=== PATIENT | male | born 1950 | race Caucasian/White ===

== ENCOUNTER → 2018-12-09 | Outpatient (CLI) | payer MEDICARE, OTHER ==
[~2018-12-09] MED LIST: ALBU90OI; FLUSAL2505; PROTONIX
== END | disposition home or self-care (01) ==
LOC: LAB SHORT 10:01 → PLD 10:01
DX: L57.0 Actinic keratosis (principal)
CPT/HCPCS: 88305

== ENCOUNTER → 2021-01-08 | Outpatient (CLI) | payer MEDICARE, OTHER | END | disposition home or self-care (01) | LOC: LAB SHORT 14:57 → LAB 14:57 | DX: L30.8 Other specified dermatitis (principal) | CPT/HCPCS: 88305; 88312 ==

== ENCOUNTER 2022-07-02 07:57 | Day surgery (SDC) | payer MEDICARE, OTHER ==
[~2022-07-02] VITALS: Ht 177.8 cm; Wt 86.0 kg
[~2022-07-02 07:57] MED LIST changes: +AMLO10 PO; +FLUT1DIS5 INH; +GABA300 PO; +MAGNESIUM GLU27.5 M1 PO; +METO25ER PO; +PRAV20 PO; +VITAMIN B COMP0.4 MG PO
--- NOTE | 2022-07-02 09:59 | NUR ---
PT RETURNED TO RECOVERY ROOM IN A RECLINER. RIGHT RADIAL TR BAND SITE SOFT NON-TENDER WITH NO HEMATOMA, NO PULSATILE BLEEDING AND WRIST BOARD IN PLACE. PT DENIES CHEST PAIN. CALL LIGHT IN REACH. PT DRINKING COFFEE. PT'S AND DAUGHTER IN ROOM.
--- NOTE | 2022-07-02 11:27 | NUR ---
9 CC OF AIR REMOVED OVER 7 MIN OUT OF NOW DEFLATED RIGHT TR BAND WITH NO HEMATOMA,NO PULSATILE BLEEDING. DISCHARGE INSTRUCTIONS REVIEWED AND ALL QUESTIONS ANSWERED. PT AMBULATED TO BR TO VOID.
--- NOTE | 2022-07-02 12:14 | NUR ---
NO CHANGES TO DEFLATED RIGHT TR BAND SITE.
--- NOTE | 2022-07-02 12:22 | NUR ---
DEFLATED TR BAND REMOVED AND POLYMEM PLACED OVER RIGHT RADIAL SITE WITH WRIST BOARD IN PLACE. RIGHT RADIAL SITE SOFT NON-TENDER WITH NO HEMATOMA, NO PULSATILE BLEEDING. 20 G IV DISCONTINUED FROM LEFT AC WITH INTACT CANNULA. PT WILL BE ESCORTED OUT VIA WHEELCHAIR ESCORT.
== END 2022-07-02 12:30 | disposition home or self-care (01) ==
LOC: MHTC 07:57
DX: I25.10 Atherosclerotic heart disease of native coronary artery without angina pectoris (principal); R93.89 Abnormal findings on diagnostic imaging of other specified body structures; I10 Essential (primary) hypertension; K21.9 Gastro-esophageal reflux disease without esophagitis; J44.9 Chronic obstructive pulmonary disease, unspecified; I49.1 Atrial premature depolarization; I49.3 Ventricular premature depolarization; I47.1 Supraventricular tachycardia; Z98.1 Arthrodesis status
CPT/HCPCS: 76937; 93454; 99152; 99153; A9270; C1769; C1887; C1894; J0153; J1644; J2250; J3010; J7030; J7050; Q9967

== ENCOUNTER 2022-09-24 07:51 | Day surgery (SDC) | payer MEDICARE, OTHER ==
[2022-09-24] MEDS ORDERED: 1/2 NS 250ml250 ML (08:04)
[2022-09-24] MEDS ORDERED: LANS30EC (08:04)
[2022-09-24] MEDS ORDERED: ALBU90OI (08:05)
[2022-09-24] MEDS ORDERED: ASPI81CH (08:06)
== END 2022-09-24 10:08 | disposition home or self-care (01) ==
DX: H25.12 Age-related nuclear cataract, left eye (principal); H52.202 Unspecified astigmatism, left eye; H21.81 Floppy iris syndrome; I10 Essential (primary) hypertension; G47.33 Obstructive sleep apnea (adult) (pediatric); J44.9 Chronic obstructive pulmonary disease, unspecified; Z87.891 Personal history of nicotine dependence; K21.9 Gastro-esophageal reflux disease without esophagitis; F43.10 Post-traumatic stress disorder, unspecified; Z79.899 Other long term (current) drug therapy; Z79.82 Long term (current) use of aspirin

== ENCOUNTER → 2023-05-29 | Outpatient (CLI) | payer MEDICARE, OTHER ==
[~2023-05-29] MED LIST changes: +1/2 NS 250ml250 ML; +ASPI81CH; +LANS30EC
== END | disposition home or self-care (01) ==
LOC: LAB SHORT 13:35 → PLD 13:35 → LAB 13:35
DX: L72.8 Other follicular cysts of the skin and subcutaneous tissue (principal)
CPT/HCPCS: 88304

== ENCOUNTER 2023-09-09 10:20 | Observation (INO) | payer MEDICARE, OTHER ==
[~2023-09-09] VITALS: Ht 177.8 cm; Wt 80.7 kg
[2023-09-09 11:27] LABS: BASOPHILS ABSOLUTE AUTO 0.04 K/mm3 (0.00-0.23); BASOPHILS PERCENT AUTO 1 % (0-2); EOSINOPHILS PERCENT AUTO 4 % (0-6); Hematocrit 50.4 % (37.0-53.0); Hemoglobin 17.8 g/dL (13.5-17.5); IMMATURE GRAN ABSOLUTE AUTO 0.01 K/mm3 (0.00-0.10); IMMATURE GRAN PERCENT AUTO 0 % (0-1); LYMPHOCYTES ABSOLUTE AUTO 1.58 K/mm3 (0.84-5.20); LYMPHOCYTES PERCENT AUTO 29 % (21-46); MONOCYTES ABSOLUTE AUTO 0.52 K/mm3 (0.16-1.47); MONOCYTES PERCENT AUTO 10 % (4-13); Mean Corpuscular HGB 33.2 pg (26.0-34.0); Mean Corpuscular HGB Conc 35.3 g/dL (31.5-36.5); Mean Corpuscular Volume 94 fL (80-100); Mean Platelet Volume 10.4 fL (9.1-12.4); NEUTROPHILS ABSOLUTE AUTO 3.05 K/mm3 (1.96-9.15); NEUTROPHILS PERCENT AUTO 57 % (41-73); Platelet Count 193 K/mm3 (150-400); RDW Coefficient Variation 12.1 % (11.7-14.2); Red Blood Cell Count 5.36 M/mm3 (4.30-5.90)
[2023-09-09 11:43] LABS: Albumin, Blood 4.4 g/dL (3.4-5.0); Bilirubin, Total 1.1 mg/dL (0.1-1.0); Bun/Creatinine Ratio 11.4 (12.0-20.0); Calcium, Blood 9.6 mg/dL (8.5-10.1); Creatinine, Blood 0.79 mg/dL (0.60-1.20); Globulin, Blood 4.3 g/dL (2.2-4.0); Potassium, Blood 5.3 mmol/L (3.5-5.5); Total Protein, Blood 8.7 g/dL (6.4-8.2)
[2023-09-09 17:19] VITALS: BP 151/76
--- NOTE | 2023-09-09 18:18 | NUR ---
ADMIT/SHIFT SUMMARY PT NEW ADMIT AT 1720, REPORT RECEIVED FROM SHWETA HILL. PT ORIENTED TO THE ROOM, ORDERED TELE BOX BUT STILL WAITING IT'S ARRIVAL. DAUGHTER AT THE BS AND SHE IS ALSO A NURSE AT THIS HOSPITAL. PT HAS NO COMPLAINTS AT THIS TIME, HE IS TO GO NPO AT MIDNIGHT TONIGHT. CALL LIGHT WITHIN REACH, BED IN THE LOWEST POSITION. WILL REPORT TO ONCOMING NURSE.
[2023-09-09 19:41] VITALS: BP 133/77
[2023-09-10 04:29] VITALS: BP 141/79
--- NOTE | 2023-09-10 05:31 | NUR ---
SHIFT SUMMARY PATIENT IS A&OX4. 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 DENIES PAIN. DENIES CHEST PAIN/PRESSURE. ON A CARDIAC DIET, NPO EXCEPT WATER AFTER MN FOR STRESS TEST TODAY. PATIENT AWAKE MUCH OF THE NIGHT. PT STATES HE DRINKS 3-4 WHISKEY/VALADEZ EVERY NIGHT. NO S/S OF WITHDRAW NOTED. UP AD [place] IN ROOM. VOIDING IN BR INDEPENDENTLY. BED IN LOWEST POSITION. CALL LIGHT WITHIN REACH. FIRE SAFETY CHECKS COMPLETED
[2023-09-10 06:09] LABS: Albumin, Blood 3.7 g/dL (3.4-5.0); Albumin/Globulin Ratio 1.1 (0.8-1.8); Bilirubin, Total 0.9 mg/dL (0.1-1.0); Bun/Creatinine Ratio 17.2 (12.0-20.0); Calcium, Blood 8.7 mg/dL (8.5-10.1); Creatinine, Blood 0.87 mg/dL (0.60-1.20); Globulin, Blood 3.3 g/dL (2.2-4.0); Potassium, Blood 3.6 mmol/L (3.5-5.5)
[2023-09-10 07:46] VITALS: BP 129/80
[2023-09-10 08:15] LABS: CHOL/HDL RATIO 2.9; Cholesterol 194 mg/dL (50-200); HDL Cholesterol 68 mg/dL (>39); LDL/HDL RATIO 1.5; Low Density Lipoprotein Chol 101 mg/dL (0-110); Triglycerides 124 mg/dL (30-160); Very Low Density Lipoprot Chol 24 mg/dL (6-32)
[2023-09-10] MEDS ORDERED: CARVEDILOL25 M9 PO (10:09)
[2023-09-10] MEDS ORDERED: EZETIMIBE10 M6 PO (10:09)
[2023-09-10 15:44] VITALS: BP 132/74
--- NOTE | 2023-09-10 17:25 | NUR ---
DISCHARGE NOTE PT DISCHARGED TO HOME, IV REMOVED AND TELE RETURNED. PERSONAL BELONGINGS RETURNED. NO NEW MEDICATIONS FOR HOME. DISCHARGE INFORMATION AND EDUCATION PROVIDED.
== END 2023-09-10 17:25 | disposition home or self-care (01) ==
LOC: ER 10:20 → MEDS 13:56
PROVIDERS: Emergency Medicine; ADMIT Hospitalist
DX: I25.118 Atherosclerotic heart disease of native coronary artery with other forms of angina pectoris (principal); I10 Essential (primary) hypertension; E78.00 Pure hypercholesterolemia, unspecified; K21.9 Gastro-esophageal reflux disease without esophagitis; J45.909 Unspecified asthma, uncomplicated; Z87.891 Personal history of nicotine dependence
CPT/HCPCS: 36415; 71046; 78452; 80048; 80053; 80061; 84484; 85025; 93005; 93010; 93017; 94640; 94664; 94760; 94762; 96372; 99285-25; A9270; A9500; G0378; J0706; J1650; J2785

== ENCOUNTER 2025-05-24 06:25 | Day surgery (SDC) | payer OTHER ==
[~2025-05-24] VITALS: Ht 177.8 cm; Wt 90.0 kg
[~2025-05-24 06:25] MED LIST changes: +Balanced Salt Epinephrine Irrigation Solution 500 mL IR SCH; +CARVEDILOL25 M9 PO; +EZETIMIBE10 M6 PO; +Moxifloxacin HCL 0.5 MG/0.1 ML 0.4MLSYR RIGHTEYE SCH; +Ondansetron 4 MG SoluTab MM PRN; +PHENYLEPHRINE\\TROPICAMIDE\\TETRACAINE OPHTHALMIC DILATING SOLN RIGHTEYE PRN; +Povidone-Iodine 450 DROP/30 ML Solution ONE; +Povidone-Iodine 450 DROP/30 ML Solution RIGHTEYE SCH; +Tetracaine HCl/Pf 0.5% Opth Soln 4 ml ONE
[2025-05-24] MEDS ORDERED: ATEN50 PO (06:40)
[2025-05-24] MEDS ORDERED: SPIRONOLACTONE50 MG PO (06:41)
[2025-05-24] MEDS ORDERED: LOSA50 PO (06:41)
[2025-05-24] MEDS ORDERED: ROSUVASTATIN CA40 MG PO (06:41)
[2025-05-24] MEDS ORDERED: EZET10 PO (06:41)
[2025-05-24] MEDS ORDERED: LANSOPRAZOLE30 MG PO (06:42)
--- NOTE | 2025-05-24 06:46 | NUR ---
05/24/25 0646 Carina Connelly CALL LIGHT WITHIN REAC. PT ON CONTINOUS PULSE OXIMETER FOR MONITORING. EYE DROPS DONE AROUND 0640. WILL CONTINUE TO MONITOR.
--- NOTE | 2025-05-24 07:55 | NUR ---
05/24/25 0755 Kaylie Pugh 0748 BP: 182/88 HR:56 O2%:97 RESP:16
[2025-05-24 08:10] VITALS: BP 165/83
--- NOTE | 2025-05-24 08:10 | NUR ---
05/24/[address] IN SPEAKING W/PT.
== END 2025-05-24 08:29 | disposition home or self-care (01) ==
LOC: ORSCSDS 06:25
PROVIDERS: Student in an Organized Health Care Education/Training Program
PROC: 08RJ3JZ Replacement of Right Lens with Synthetic Substitute, Percutaneous Approach (ICD-10-PCS; principal; 2025-05-24 08:00)
DX: H25.811 Combined forms of age-related cataract, right eye (principal); Z96.1 Presence of intraocular lens; H52.201 Unspecified astigmatism, right eye; H40.003 Preglaucoma, unspecified, bilateral; J44.89 Other specified chronic obstructive pulmonary disease; G47.33 Obstructive sleep apnea (adult) (pediatric); E78.00 Pure hypercholesterolemia, unspecified; H40.053 Ocular hypertension, bilateral; Z87.891 Personal history of nicotine dependence; Z79.899 Other long term (current) drug therapy
CPT/HCPCS: A9270; J2003; V2632